=== PATIENT | male | born 1960 | race African-American/Black ===

== ENCOUNTER 2023-12-07 12:16 | Inpatient (IN) | payer OTHER ==
[2023-12-07 14:36] VITALS: BMI 23.0
[2023-12-07] MEDS ORDERED: ACETAMINOPHEN 325 MG TABLET (FP) PO PRN (15:26)
[2023-12-07] MEDS ORDERED: NALOXONE HCL 0.4 MG/ML VIAL IM PRN (15:26)
[2023-12-07] MEDS ORDERED: BENZOCAINE/MENTHOL (CHLORASEPTIC ) LOZENGE MM PRN (15:26)
[2023-12-07] MEDS ORDERED: MAG HYDROX/AL HYDROX/SIMETH 30 ML UNIT-DOSE CUP PO PRN (15:26)
[2023-12-07] MEDS ORDERED: BENZONATATE 200 MG CAPSULE PO PRN (15:26)
[2023-12-07] MEDS ORDERED: guaiFENesin 600 MG TABLET.ER (FP) PO PRN (15:26)
[2023-12-07] MEDS ORDERED: LOPERAMIDE HCL 2 MG CAPSULE PO PRN (15:26)
[2023-12-07] MEDS ORDERED: IBUPROFEN 600 MG TABLET (FP) PO PRN (15:26)
[2023-12-07] MEDS ORDERED: MAGNESIUM HYDROX 2400MG/30ML ORAL SUSPENSION 30 ML CUP PO PRN (15:26)
[2023-12-07] MEDS ORDERED: POLYETHYLENE GLYCOL (HEALTHYLAX) 3350 17 GM PACKET PO PRN (15:26)
[2023-12-07] MEDS ORDERED: IBUPROFEN 400 MG TABLET (FP) PO PRN (15:26)
[2023-12-07] MEDS ORDERED: NALOXONE HCL (KLOXXADO) 8 MG SPRAY NS PRN (15:26)
[2023-12-07] MEDS: NICOTINE 14 MG/24 HOURS TOPICAL PATCH TD SCH (19:38)
[2023-12-07] MEDS: IBUPROFEN 400 MG TABLET (FP) PO SCH (19:38)
[2023-12-07] MEDS: PRENATAL VITAMINS W/ FOLIC ACID TABLET (FP) PO SCH (19:38)
[2023-12-07] MEDS: THIAMINE HCL 100 MG TABLET (FP) PO SCH (21:12)
[2023-12-07] MEDS: ATORVASTATIN CA 20 MG TABLET (FP) PO SCH (21:12)
[2023-12-07] MEDS: MELATONIN 5 MG TABLETS PO SCH (21:12)
[2023-12-07] MEDS: QUEtiapine FUMARATE 100 MG TABLET (FP) PO SCH (21:12)
[2023-12-08] MEDS: LORATADINE 10 MG TABLET PO SCH (10:13)
[2023-12-08] MEDS: amLODIPine BESYLATE 10 MG TABLET (FP) PO SCH ×2 (10:13→21:33)
[2023-12-08 11:44] LABS: HEMATOCRIT 39.9 % (35.4-49); HEMOGLOBIN 13.7 GM/dL (11.7-16.9); MCH 32.3 pg (25.7-33.7); MCHC 34.4 g/dl (32.0-35.9); MEAN CELL VOLUME 94.1 fl (80-96); MEAN PLT VOLUME 8.4 fl (7.5-11.1); PLATELET COUNT 311 10^3/uL (134-434); RBC 4.25 M/mm3 (4.00-5.60); RDW 14.3 % (11.9-15.9); WHITE BLOOD COUNT 4.9 K/mm3 (4.0-10.0)
[2023-12-08 11:47] LABS: POTASSIUM 3.5 mmol/L (3.5-5.1)
[2023-12-08] MEDS ORDERED: IBUPROFEN 400 MG TABLET (FP) PO PRN (11:47)
[2023-12-08 11:49] LABS: ALBUMIN 3.6 g/dl (3.4-5.0); BLOOD UREA NITROGEN 20.5 mg/dL (7-18); CALCIUM 9.2 mg/dL (8.5-10.1)
[2023-12-08 11:53] LABS: CREATININE 1.1 mg/dL (0.55-1.3)
[2023-12-08 11:54] LABS: BILIRUBIN,TOTAL 0.3 mg/dL (0.2-1); TOT PROT 6.6 g/dl (6.4-8.2)
[2023-12-08 12:37] LABS: SYPHILIS W/ RPR CONF REACTIVE (NONREACTIVE)
[2023-12-08 16:12] LABS: URINE APPEARANCE CLEAR; URINE BILIRUBIN NEGATIVE (NEGATIVE); URINE COLOR YELLOW; URINE GLUCOSE (UA) NEGATIVE (NEGATIVE); URINE KETONE NEGATIVE (NEGATIVE); URINE LEUK ESTERASE NEGATIVE (NEGATIVE); URINE NITRITE NEGATIVE (NEGATIVE); URINE PROTEIN NEGATIVE (NEGATIVE); URINE UROBILINOGEN 0.2 mg/dL (0.2-1.0)
[2023-12-12] MEDS ORDERED: QUEtiapine FUMARATE 50 MG TABLET ONE (20:35)
[2023-12-18] MEDS: hydrOXYzine PAMOATE 25 MG CAPSULE (FP) PO PRN (21:44)
[2023-12-20 07:27] VITALS: TEMP 97.5
[2023-12-21 06:45] VITALS: RESP 18
[2023-12-21 09:11] VITALS: BP 123/74; PULSE 92
== END 2023-12-21 09:24 | disposition home or self-care (01) | DRG 772 ==
LOC: YASAS 12:16 → Y3W 18:15
PROVIDERS: ADMIT Allergy & Immunology; ATTEND Psychiatry & Neurology Pain Medicine
PROC: HZ42ZZZ Group Counseling for Substance Abuse Treatment, Cognitive-Behavioral (ICD-10-PCS; principal; 2023-12-07)
DX: F14.20 Cocaine dependence, uncomplicated (principal); F17.210 Nicotine dependence, cigarettes, uncomplicated; E78.5 Hyperlipidemia, unspecified; I10 Essential (primary) hypertension; J44.9 Chronic obstructive pulmonary disease, unspecified; J30.89 Other allergic rhinitis; M54.50 Low back pain, unspecified; G89.29 Other chronic pain; Z85.118 Personal history of other malignant neoplasm of bronchus and lung; Z86.11 Personal history of tuberculosis
CPT/HCPCS: 36415; 71046-TC-FY; 80053; 80305; 81003; 82962; 85027; 86593; 86780; 86803; 87635; 93005; 93010

== ENCOUNTER 2024-04-04 12:54 | Inpatient (IN) | payer OTHER ==
[2024-04-04 14:24] VITALS: BMI 23.0
[2024-04-04] MEDS ORDERED: guaiFENesin 600 MG TABLET.ER (FP) PO PRN (16:19)
[2024-04-04] MEDS ORDERED: IBUPROFEN 400 MG TABLET (FP) PO PRN (16:19)
[2024-04-04] MEDS ORDERED: IBUPROFEN 600 MG TABLET (FP) PO PRN (16:19)
[2024-04-04] MEDS ORDERED: BENZOCAINE/MENTHOL (CHLORASEPTIC ) LOZENGE MM PRN (16:19)
[2024-04-04] MEDS ORDERED: ACETAMINOPHEN 325 MG TABLET (FP) PO PRN (16:19)
[2024-04-04] MEDS ORDERED: MAGNESIUM HYDROX 2400MG/30ML ORAL SUSPENSION 30 ML CUP PO PRN (16:19)
[2024-04-04] MEDS ORDERED: POLYETHYLENE GLYCOL (HEALTHYLAX) 3350 17 GM PACKET PO PRN (16:19)
[2024-04-04] MEDS ORDERED: MAG HYDROX/AL HYDROX/SIMETH 30 ML UNIT-DOSE CUP PO PRN (16:19)
[2024-04-04] MEDS ORDERED: NICOTINE POLACRILEX 2 MG GUM BUC PRN (16:19)
[2024-04-04] MEDS ORDERED: LOPERAMIDE HCL 2 MG CAPSULE PO PRN (16:19)
[2024-04-04] MEDS ORDERED: NICOTINE POLACRILEX 2 MG LOZENGE BC PRN (16:19)
[2024-04-04] MEDS ORDERED: BENZONATATE 200 MG CAPSULE PO PRN (16:19)
[2024-04-04] MEDS: MELATONIN 5 MG TABLETS PO SCH (21:21)
[2024-04-04] MEDS: THIAMINE 100 MG TABLET PO SCH (21:21)
[2024-04-05 00:11] LABS: PH,URINE 5.5 (5.0-8.0); URINE APPEARANCE CLEAR; URINE BILIRUBIN NEGATIVE (NEGATIVE); URINE COLOR YELLOW; URINE GLUCOSE (UA) NEGATIVE (NEGATIVE); URINE KETONE TRACE (NEGATIVE); URINE LEUK ESTERASE NEGATIVE (NEGATIVE); URINE NITRITE NEGATIVE (NEGATIVE); URINE PROTEIN NEGATIVE (NEGATIVE); URINE UROBILINOGEN 0.2 mg/dL (0.2-1.0)
[2024-04-05] MEDS: PRENATAL VITAMINS W/ FOLIC ACID TABLET (FP) PO SCH (09:54)
[2024-04-05 12:04] LABS: POTASSIUM 4.3 mmol/L (3.5-5.1)
[2024-04-05 12:16] LABS: HEMATOCRIT 40.3 % (35.4-49); MCH 32.3 pg (25.7-33.7); MCHC 34.8 g/dl (32.0-35.9); MEAN PLT VOLUME 8.1 fl (7.5-11.1); PLATELET COUNT 319 10^3/uL (134-434); RBC 4.33 M/mm3 (4.00-5.60); RDW 13.7 % (11.9-15.9); WHITE BLOOD COUNT 4.7 K/mm3 (4.0-10.0)
[2024-04-05 12:18] LABS: BLOOD UREA NITROGEN 13.1 mg/dL (7-18)
[2024-04-05 12:19] LABS: CALCIUM 9.5 mg/dL (8.5-10.1)
[2024-04-05 12:22] LABS: BILIRUBIN,TOTAL 0.4 mg/dL (0.2-1)
[2024-04-06] MEDS: BACLOFEN 10 MG TABLET (FP) PO SCH (14:11)
[2024-04-06] MEDS: amLODIPine BESYLATE 10 MG TABLET (FP) PO SCH (21:18)
[2024-04-06] MEDS: ATORVASTATIN CA 20 MG TABLET (FP) PO SCH (21:18)
[2024-04-06] MEDS: QUEtiapine FUMARATE 100 MG TABLET (FP) PO SCH (21:18)
[2024-04-07] MEDS: LORATADINE 10 MG TABLET PO SCH (09:51)
[2024-04-07] MEDS: CHOLECALCIFEROL (VIT D3) 400 UNIT (10 MCG) TABLET PO SCH (17:13)
[2024-04-08] MEDS ORDERED: QUEtiapine FUMARATE 50 MG TABLET ONE (21:35)
[2024-04-09] MEDS ORDERED: QUEtiapine FUMARATE 50 MG TABLET ONE (20:11)
[2024-04-16] MEDS ORDERED: QUEtiapine FUMARATE 50 MG TABLET ONE (21:19)
[2024-04-17 06:34] VITALS: BP 142/88; PULSE 85; RESP 18; TEMP 97.7
== END 2024-04-17 09:14 | disposition home or self-care (01) | DRG 774 ==
LOC: YASAS 12:54 → Y3W 17:33
PROVIDERS: ADMIT Allergy & Immunology; ATTEND Psychiatry & Neurology Pain Medicine
PROC: HZ42ZZZ Group Counseling for Substance Abuse Treatment, Cognitive-Behavioral (ICD-10-PCS; principal; 2024-04-04)
DX: F14.10 Cocaine abuse, uncomplicated (principal); F17.210 Nicotine dependence, cigarettes, uncomplicated; F20.0 Paranoid schizophrenia; E78.5 Hyperlipidemia, unspecified; I10 Essential (primary) hypertension; J44.9 Chronic obstructive pulmonary disease, unspecified; J30.89 Other allergic rhinitis; M54.50 Low back pain, unspecified; G89.29 Other chronic pain; Z85.118 Personal history of other malignant neoplasm of bronchus and lung
CPT/HCPCS: 36415; 80053; 80305; 80307; 81003; 82306; 82962; 83735; 85027; 86593; 86780; 86803; 87811; J0475